=== PATIENT | male | born 1990 | race Caucasian/White ===

== ENCOUNTER 2021-09-14 17:04 | Emergency (ER) | payer SELFPAY ==
[2021-09-14 17:23] VITALS: BP 133/82; PULSE 81; TEMP 97.5; BMI 30.7
[2021-09-14] MEDS ORDERED: ACETAMINOPHEN 325 MG TABLET (FP) PO ONE (18:04)
[2021-09-14] MEDS ORDERED: KETOROLAC TROMETHAMINE 30 MG/1 ML VIAL IM ONE (18:04)
[2021-09-14] MEDS ORDERED: ACETAMINOPHEN 325 MG TABLET (FP) ONE (18:19)
[2021-09-14] MEDS ORDERED: KETOROLAC TROMETHAMINE 30 MG/1 ML VIAL ONE (18:20)
== END 2021-09-14 20:14 | disposition home or self-care (01) ==
LOC: JER 17:04 → JERFT 17:04
PROC: 3E023GC Introduction of Other Therapeutic Substance into Muscle, Percutaneous Approach (ICD-10-PCS; principal; 2021-09-14)
DX: M25.561 Pain in right knee (principal)
CPT/HCPCS: 73562-TC-RT-FY; 99284-25